=== PATIENT | female | born 1995 | race Two or more races ===

== ENCOUNTER 2018-09-25 20:36 | Emergency (ER) | payer MEDICAID ==
[~2018-09-25] VITALS: Ht 160 cm; Wt 47.0 kg
[2018-09-25] MEDS ORDERED: LIDOCAINE HCL/PF 1% 10 MG/ML 5ML VIAL IJ ONE (22:45)
[2018-09-25] MEDS ORDERED: BACITRACIN ZINC OINT UDPKT TOP ONE (22:45)
[2018-09-25] MEDS ORDERED: TETANUS, DIPHTHERIA, PERTUSSIS VAC/PF 0.5ML (>7YR OLD) IM ONE (22:45)
[2018-09-26 01:10] VITALS: BP 116/75
== END 2018-09-26 01:10 | disposition home or self-care (01) ==
LOC: ER 20:36
DX: S61.210A Laceration without foreign body of right index finger without damage to nail, initial encounter (principal); F53.0 Postpartum depression; W26.0XXA Contact with knife, initial encounter; Y93.89 Activity, other specified; Y92.89 Other specified places as the place of occurrence of the external cause; Y99.8 Other external cause status
CPT/HCPCS: 12001; 90471; 90715; 99283; J3490; J7030